=== PATIENT | male | born 1990 | race Caucasian/White ===

== ENCOUNTER 2018-10-16 07:44 | Day surgery (SDC) | payer OTHER ==
[2018-10-16] MEDS ORDERED: CEFAZOLIN SODIUM IN 0.9 % NACL 2 GM/100 ML BAG IV ONE (08:03)
[2018-10-16] MEDS ORDERED: LACTATED RINGERS 1,000 ML IV ONE ×2 (08:22→14:34)
--- NOTE | 2018-10-16 09:03 | ANESTHESIA ---
Pre-Anesthesia VS, & Labs - Diagnosis Left knee ACL tear - Procedure Left knee arthroscopy, ACL reconstruction, meniscus debridement vs repair Height 5 ft 11 in Weight (kg) 82.1 kg - NPO >8 hours Home Medications and Allergies No Known Home Medications 03/30/13 Allergies/Adverse Reactions: Allergies Allergy/AdvReac Type Severity Reaction Status Date / Time No Known Drug Allergies Allergy Verified 10/16/18 08:14 Anes History & Medical History - Anesthetic History Family history of Anesthesia Complications: Denies Family history of Malignant Hyperthermia: Denies - Medical History Cardiovascular: reports: None Pulmonary: reports: None Gastrointestinal: reports: None Urinary: reports: None Neuro: reports: None Musculoskeletal: reports: None, Other Endocrine/Autoimmune: reports: None Blood Disorders: reports: None Skin: reports: None Smoking Status: Never smoker Psychosocial: reports: No issues indicated Exam General: Alert, Oriented x3, Cooperative, No acute distress Dental: WNL Mouth Openin Fingerbreadth Neck Mobility: Normal Mallampati classification: II Thyromental Distance: greater than 6 cm Respiratory: Lungs clear, Normal breath sounds, No respiratory distress, No accessory muscle use Cardiovascular: Regular rate, Normal S1, Normal S2, No murmurs Mental/Cognitive Status: Alert/Oriented X3, Normal for patient Plan Anesthesia Type: General, Femoral Block (Left FNB in PACU if needed.) Regional Block: Per Surgeon's request for Post Op pain control Consent for Procedure(s) Verified and Reviewed: Yes Code Status: Attempt Resuscitation ASA classification: 1-Healthy patient Is this case an emergency?: No
[2018-10-16] MEDS ORDERED: BUPIVACAINE 0.25% PF 30 ML VIAL ONE (10:05)
[2018-10-16] MEDS ORDERED: EPINEPHrine 1 MG/ML AMP ONE (10:06)
[2018-10-16] MEDS ORDERED: EPINEPHrine 1 MG/ML AMP IR ONE (11:00)
[2018-10-16] MEDS ORDERED: BUPIVACAINE 0.25% PF 30 ML VIAL SUBQ ONE (11:00)
[2018-10-16] MEDS ORDERED: HYDROmorphone 0.5 MG/0.5 ML SYRINGE ONE ×2 (14:00→14:30)
[2018-10-16] MEDS ORDERED: ONDANSETRON 4 MG/2 ML VIAL IVP PRN (14:01)
[2018-10-16] MEDS ORDERED: ROPIVACAINE 0.5% PF 20 ML VIAL ONE (14:02)
[2018-10-16] MEDS ORDERED: ONDANSETRON 4 MG/2 ML VIAL ONE (14:09)
--- NOTE | 2018-10-16 14:11 | OPERATIVE REPORT ---
Operative Report - Other Other Information/Narrative: Date of Surgery: 16 October 2018 Pre-Op Diagnosis: Left ACL tear, left medial meniscus tear Procedure: Left arthroscopic anterior cruciate ligament reconstruction with patellar tendon autograft Left medial meniscus repair Left lateral meniscus debridement Postop Diagnosis: Left ACL tear, medial meniscus tear, and lateral meniscus tear Primary Surgeon: Oleg Conn Secondary Surgeon: None Complications: None Tourniquet Time: 130 minutes EBL: 25 cc Implants: Arthrex BTB Tightrope. Arthrex 9 mm x 20 mm Metal Interference Screw. [employer]hew FasT-Fix 3602 Graft Dimensions: Patellar bone block was 23 mm. Tibial bone block was 30 mm. Total length was 103. Tunnel Size: 10 mm Postoperative Protocol: Knee locked in full extension for 2 weeks. Range of motion is 0-90 until 6 weeks. Weight-bear as tolerated with the knee locked in full extension until 6 weeks. Indication For Surgery: 27-year-old male who sustained an injury to his ACL 1 year ago. He also had a partial MCL sprain and potentially a meniscus tear. He desired to return to cutting sports. ACL reconstruction was indicated to allow him to return to cutting sports and to protect his menisci. The risks, benefits, and alternatives were discussed. Risks include pain, bleeding, infection, damage to nearby structures and cartilage, lack of symptom relief, need for further surgery, DVT, PE, stroke, and . Written consent was obtained. Examination Under Anesthesia: ROM equal to the contralateral side. Stable dial at 30 & 90 degrees. Stable to varus and valgus stressing at 0 & 30 degrees. 2A Marv. Abnormal Pivot shift. No mechanical sensation Diagnostic Arthroscopy: No loose bodies. Synovium normal. Patella cartilage intact. Trochlear cartilage intact. Medial femoral condyle cartilage normal. Medial tibial plateau cartilage a focal fissure that was stable on both sides. Medial meniscus vertical tear of the posterior horn that surfaced inferiorly but did not surface superiorly. It was located 10 mm from the free edge in the red- white zone. It was debrided, abraded and repaired with 2 all inside devices. ACL was torn off of the femur and scarred to the PCL. PCL was intact. Lateral femoral condyle cartilage intact. Lateral tibial plateau cartilage intact. Lateral meniscus small tear was seen at the root but the root was stable. The small tear at the root was debrided with a shaver. Procedure in Detail: The patient was met in the pre-operative hold area on the day of the procedure. The operative extremity was signed and questions were answered. The patient was brought to the operating room and a general anesthetic was administered. Supine position was used and bony prominences were padded. An examination under anesthesia was performed. Standard prepping and draping was performed. A time out confirmed patient identification, laterality, procedure, allergies, antibiotics, and images. An Esmarch was used to exsanguinate the limb and the tourniquet was elevated to 250 mmHg. A standard diagnostic arthroscopy of the knee was performed through anterolateral and anteromedial portal sites. The anteromedial portal was created under direct visualization after localizing with a spinal needle. The findings can be found above. I then proceeded to debride the medial meniscus tear with a shaver on the underside. The free edge was left intact. All loose pieces of meniscus were removed. I then placed the ball rasp in the meniscus tear and abraded it back and forth. I made the decision to repair the meniscus given his young age, concomitant ACL reconstruction, and favorable tear characteristics. I then used the Mock and nephew all inside devices in a vertical/oblique mattress pattern. These 2 anchors reduced and stabilized the meniscus very nicely. Patellar Tendon Graft [place]: A 6 cm incision was made just medial to the midline of the knee from the inferior pole of the patellar tendon to the tibial tubercle. Sharp dissection was brought down to the peritenon and full-thickness skin flaps were created. I then made a midline longitudinal incision in the peritenon and dissected it off the underlying patellar tendon. I then measured the width of the tendon and made lezama for the central third. A 10 blade was used to cut the tendon at these lezama in line with its fibers from the patella to the tibial tubercle. I then used Bovie electrocautery to becca out my patellar and tibial bone blocks at 20 mm for the patella and a 30 mm for the tibia. I then straighten the knee and harvested a triangular bone block from the patella and a trapezoidal bone block from the tibia using a sagittal saw and a curved osteotome. There were no associated fractures. I then brought the graft to the back table and prepped it for the tibia to be 10 mm and the patella to be 9.5 mm. The patella was bulletized in a single 2.0 mm drill hole was placed. 2 drill holes were placed in the tibia. ACL Prep: I then used a sucker shaver and a radiofrequency ablation wand to release all residual ACL tissue off of the lateral wall. I debrided all excess tissue from the notch. I placed the camera into the anteromedial portal and ensured that I was cleared all the way to the back wall. I then brought the flip cutter aiming device through the lateral portal. I positioned it into the central position of the [place] ACL footprint on the femur ensuring to leave a 2 mm back wall and stay off of the distal articular cartilage. Once satisfied with the position, the bullet was brought down to the skin and a becca was made. A 2 cm longitudinal skin incision was made and the IT band was split in line wi th its fibers. A sen rake was used to retract the IT band posterior and the bullet was brought down to the lateral femoral wall. An appropriately sized flip cutter was then drilled into the notch. It was then flipped and the lateral wall was scored confirming an appropriate position. The bullet was then malleted into place and a 25mm femoral tunnel was drilled. Bony debris was removed with a shaver. A fiberstick suture was brought into the joint, retrieved out the lateral portal, and clamped to itself. I then identified the ACL footprint on the tibia and set the tibial guide at 55. I aimed to have the guide pin come out 7 mm anterior to the PCL and in line with the posterior borders of the anterior horn of the lateral meniscus, on the lateral border of the medial tibial spine. The guidewire was then brought into the joint. The knee was then straightened to confirm that it would not impinge on the notch. The guidewire was clamped with a Alejandro. The skin was then protected and the tibial tunnel was drilled with the appropriate sized reamer. The fiberwire was then brought through the tibial tunnel. The graft was then loaded onto the tightrope and the graft was marked at end of the bone block. The tightrope sutures were then passed and the button was brought out of the skin over the lateral femur. Point the femoral bone block was in the notch. I then grabbed the bone block with a Alejandro and pushed posteriorly to be in line with the femoral tunnel. The bone block was then delivered into the femoral tunnel and the ink lezama could no longer be seen. I then sequentially tightened the tight rope sutures and guided the button back down beneath the IT band and visualized it on the lateral femoral cortex. The knee was then cycled 20 times with tension on the graft. I then placed a large bump under the distal femur the pulled on the tibial bone block sutures. There was 2 mm of excess bone block coming from the tibia. A posterior drawer was placed on to the proximal tibia. The guidewire was then placed into the tibial tunnel and the tibial screw was placed with excellent bony purchase. Marv had been restored. I then brought the arthroscope back into the joint and probed the graft finding it to have excellent tension. Final images were taken. Excess tibial bone block was removed with a rongeur and the wounds were copiously irrigated. I then placed morselized bone into the patellar defect and DBX putty into the tibial defect. The peritenon was then closed with a running 0 Vicryl. The IT band was closed with interrupted 0 Vicryl, the subdermal tissues with 2 O Vicryl, and the skin with running Monocryl. Steri-Strips were applied and 20 cc of 0.5% Marcaine was placed under the incisions. The tourniquet was then dropped and a sterile dressing was placed. The ROM brace was placed and was locked out in full extension. He was awakened and transferred to the recovery room.
[2018-10-16] MEDS: oxyCODONE 5 MG TABLET PO PRN ×2 (15:00→16:00)
[2018-10-16 16:08] VITALS: BP 146/96
--- NOTE | 2018-10-16 18:07 | ANESTHESIA PROCEDURE NOTE ---
Diagnosis: Left ACL tear, s/p repair Procedure: Left femoral nerve block Consent for Procedure(s) Verified and Reviewed: Yes Height and Weight: Height 5 ft 11 in Weight (kg) 82.1 kg Vital Signs: Temp Pulse Resp BP Pulse Ox 36.7 C 91 18 146/96 H 98 10/16/18 15:30 10/16/18 16:06 10/16/18 16:06 10/16/18 16:06 10/16/18 16:06 Allergies No Known Drug Allergies Allergy (Verified 10/16/18 08:14) Requesting Provider: Fabien Location: Left ASA classification: 1-Healthy patient Is this case an emergency?: No Anes. Monitoring and Equipment: Non-invasive BP, Pulse oximetery Anes. Procedure Start Time: 14:00 Anes. Procedure Stop Time: 14:13 Procedure Notes: Patient in PACU, rates pain 7/10, requesting block. Left groin prepped with chloroprep. Time out completed. Left femoral nerve imaged with ultrasound and 22G blunted stimiplex needle advanced. A total of 20ml 0.5% ropivicaine with 4mg decadron was injected around the nerved with adequate spread noted. Patient tolerated the procedure well. Full evaluation pending.
== END 2018-10-16 07:45 | disposition home or self-care (01) ==
LOC: SDS 07:44
PROVIDERS: ATTEND Orthopaedic Surgery
PROC: 0LBR0ZZ Excision of Left Knee Tendon, Open Approach (ICD-10-PCS; 2018-10-16)
PROC: 0SQD4ZZ Repair Left Knee Joint, Percutaneous Endoscopic Approach (ICD-10-PCS; 2018-10-16)
PROC: 0MRP47Z Replacement of Left Knee Bursa and Ligament with Autologous Tissue Substitute, Percutaneous Endoscopic Approach (ICD-10-PCS; principal; 2018-10-16 09:15)
DX: S83.512A Sprain of anterior cruciate ligament of left knee, initial encounter (principal); S83.242A Other tear of medial meniscus, current injury, left knee, initial encounter; S83.282A Other tear of lateral meniscus, current injury, left knee, initial encounter
CPT/HCPCS: 29882; 29888; A9270; C1713; J0690; J1170; J2795; J7120